=== PATIENT | male | born 1995 | race African-American/Black ===

== ENCOUNTER 2016-08-19 19:53 | Emergency (ER) ==
[2016-08-19 20:16] LABS: MANUAL DIFF NEEDED? NO
[2016-08-19 20:16] LABS: URINE CULTURE NEEDED? NO; URINE MICRO REVIEW NEEDED? NO; URINE SOURCE CLEAN CATCH
[2016-08-19 20:19] LABS: BILIRUBIN URINE NEGATIVE (NEGATIVE); BLOOD URINE NEGATIVE (NEGATIVE); COLOR YELLOW; GLUCOSE URINE NEGATIVE (NEGATIVE); LEUKOCYTES URINE NEGATIVE (NEGATIVE); NITRITE URINE NEGATIVE (NEGATIVE); PROTEIN URINE NEGATIVE (NEGATIVE); SP GRAVITY URINE 1.022; TURBIDITY URINE CLEAR (CLEAR); UR EPITHELIAL CELLS <10 /HPF (<10); URINE BACTERIA NEGATIVE /HPF; URINE RBC <10 /HPF (<10); URINE WBC <10 /HPF (<10); UROBILINOGEN URINE 3 mg/dL (NORMAL)
[2016-08-19 20:19] LABS: BASO% 0.4 % (0.0-0.8); EOS# 0.12 X1000 (0.0-0.7); EOS% 1.6 % (0.0-10.0); HEMATOCRIT 45.4 % (42.0-52.0); HEMOGLOBIN 15.4 g/dL (14.0-18.0); LYMPH# 1.61 X1000 (1.2-3.4); LYMPH% 21.3 % (20.5-51.1); MCH 29.7 PG (27-31); MCHC 33.9 g/dL (33-37); MCV 87.5 FL (81-99); MONO# 0.59 X1000 (0.11-0.59); MONO% 7.8 % (1.7-9.3); MPV 11.1 FL (7.4-10.4); NEUT% 68.9 % (42.2-75.2); PLT 244 X1000 (130-400); RBC 5.19 XMIL (4.7-6.1)
[2016-08-19 20:39] LABS: AGAP 14; ALBUMIN 4.5 g/dL (3.5-5.0); ALKALINE PHOSPHATASE 62 U/L (32-122); BUN 11 mg/dL (8-22); CALCIUM 9.3 mg/dL (8.8-10.2); CHLORIDE 101 mmol/L (98-107); COSMO 280; GOT 25 U/L (10-34); GPT 18 U/L (10-44); POTASSIUM 4.1 mmol/L (3.5-5.1); SODIUM 141 mmol/L (136-145); TCO2 26 mmol/L (25-35); TOTAL BILIRUBIN 0.58 mg/dL (0.20-1.00); TOTAL PROTEIN 7.2 g/dL (6.3-8.3)
[2016-08-19] MEDS ORDERED: NORCO-5 PO ONE (20:58)
[2016-08-19] MEDS ORDERED: FLEXERIL PO ONE (20:58)
--- NOTE | 2016-08-19 20:59 | PROVIDER DOCUMENTATION ---
HPI-Musculoskeletal Pain/Inj <SohailBrianapatricia John - Last Filed: 08/19/16 20:58> - GENERAL Source: patient - HX OF PRESENT ILLNESS-MUSKULOSKELTAL Quality of Pain: reports: aching Severity in ED: mild Onset/Duration: this afternoon Timing: still present Any recent injury?: No Locality of Occurance: Home Similar Symptoms Previously?: No Recently seen or treated by another doctor?: No - BACK & NECK PAIN/INJURY Back/Neck Pain Location: reports: paraspinous muscles Context / Method of Injury: reports: unknown Associated Symptoms: reports: denies symptoms History of Chronic Neck or Back Pain?: No <Parul Westbrook - Last Filed: 08/19/16 21:36> - GENERAL Chief Complaint: Flank Pain Stated Complaint: KIDNEY PAIN Time Seen by Provider: 08/19/16 20:52 - HX OF PRESENT ILLNESS-MUSKULOSKELTAL Nature of Presenting Problem: 20 year old M presents to the ED with a cc of lower back pain with an onset of this afternoon. Pt states that he has a hx of kidney stones but states that this does not feel like a kidney stone. (Parul Westbrook) Review of Systems - Adult - REVIEW OF SYSTEMS - ADULT Constitutional: denies: chills, fever Eyes: reports: no symptoms reported Ears, Nose, Mouth & Throat: reports: no symptoms reported Cardiovascular: reports: no symptoms reported Respiratory: reports: no symptoms reported Gastrointestinal: denies: abdominal pain, nausea, vomiting Genitourinary: denies: dysuria, hematuria Musculoskeletal: reports: back pain. denies: neck pain Integumentary: reports: no symptoms reported Neurological: reports: no symptoms reported Psychiatric: reports: no symptoms reported Endocrine: reports: no symptoms reported Hematologic/Lymphatic: reports: no symptoms reported Allergic/Immunologic: reports: no symptoms reported All Other Systems: Reviewed and Negative <Parul Westbrook - Last Filed: 08/19/16 21:36> Past History - Adult - PAST MEDICAL HISTORY-ADULT Major Childhood Illnesses: reports: denies history Cardiovascular: reports: denies history Respiratory: reports: denies history Gastrointestinal: reports: denies history Genitourinary: reports: denies history Musculoskeletal: reports: denies history Neurological: reports: denies history Psychiatric: reports: denies history Endocrine/Immune: reports: denies history Other Conditions: reports: denies history - PRIOR SURGERIES/PROCEDURES Surgical/Procedure History: reports: none - PRIOR HOSPITALIZATIONS Prior Hospitalizations: reports: none - IMMUNIZATION STATUS Childhood Immunizations: See Nurse Assessment Flu Vaccine: See Nurse Assessment - FAMILY HISTORY Family History: reviewed, not pertinent <Briana Sauceda - Last Filed: 08/19/16 20:58> - PAST MEDICAL HISTORY-ADULT Review of Records: reports: Nursing Assessment Review, Medications Reviewed Major Childhood Illnesses: reports: denies history Genitourinary: reports: kidney stones - PRIOR SURGERIES/PROCEDURES Surgical/Procedure History: reports: none - IMMUNIZATION STATUS Childhood Immunizations: See Nurse Assessment Flu Vaccine: See Nurse Assessment - SOCIAL HISTORY Smoking: non-smoker Substance Use: none/never Alcohol Use Frequency: never <Parul Westbrook - Last Filed: 08/19/16 21:36> Physical Exam-Injury Related - Physical Exam-Injury Related Initial Vital Signs Reviewed: Yes General Appearance: appears well, alert, no apparent distress Respiratory: chest non-tender, lungs clear, normal breath sounds Cardiovascular: normal peripheral pulses, regular rate, rhythm, no edema Back Exam: other (bilateral lumbar paraspinal muscle tenderness) Extremity: normal inspection Integumentary: normal color, warm/dry Psych/Mental Status: normal mood/affect, normal thought content, normal thought process, oriented x 3 <Parul Westbrook - Last Filed: 08/19/16 21:36> Progress <Briana Sauceda - Last Filed: 08/19/16 20:58> <Parul Westbrook - Last Filed: 08/19/16 21:36> - PLAN OF CARE/RESULTS Progress/Plan/Lab Results: plan of care: labs, medications Laboratory Tests 08/19/16 08/19/16 08/19/16 20:03 20:03 20:06 WBC 7.57 RBC 5.19 Hgb 15.4 Hct 45.4 MCV 87.5 MCH 29.7 MCHC 33.9 RDW Std Deviation 12.7 Plt Count 244 MPV 11.1 H Immature Gran % (Auto) 0.0 Neut % (Auto) 68.9 Lymph % (Auto) 21.3 [place] % (Auto) 7.8 Eos % (Auto) 1.6 Baso % (Auto) 0.4 Immature Gran # (Auto) 0.00 Neut # (Auto) 5.22 Lymph # (Auto) 1.61 [place] # (Auto) 0.59 Eos # (Auto) 0.12 Baso # (Auto) 0.03 Sodium 141 Potassium 4.1 Chloride 101 Carbon Dioxide 26 Anion Gap 14 BUN 11 Creatinine 0.9 Estimated GFR/1.73 m2 > 60 BUN/Creatinine Ratio 12 Glucose 93 Calculated Osmolality 280 Calcium 9.3 Total Bilirubin 0.58 AST 25 ALT 18 Alkaline Phosphatase 62 Total Protein 7.2 Albumin 4.5 Globulin 2.7 Albumin/Globulin Ratio 1.7 Urine Source CLEAN CATCH Urine Color YELLOW Urine Turbidity CLEAR Urine pH 7.0 Ur Specific [place] 1.022 Urine Protein NEGATIVE Ur Glucose (Stick) NEGATIVE Ur Ketones (Stick) 10 A Urine Blood NEGATIVE Urine Nitrite NEGATIVE Urine Bilirubin NEGATIVE Urobilinogen Dipstick 3 A Urine Leukocytes NEGATIVE Urine WBC (Auto) <10 Urine RBC (Auto) <10 U Epithel Cells (Auto) <10 Urine Bacteria (Auto) NEGATIVE Orders Category Date Time Status CBC WITH DIFF [HEME] Stat Lab 08/19/16 20:03 Completed COMPREHENSIVE METABOLIC PANEL [CHEM] Stat Lab 08/19/16 20:03 Completed URINALYSIS W/POSS RFLX CULT [URINALYSIS] Stat Lab 08/19/16 20:06 Completed Cyclobenzaprine [Flexeril] Med 08/19/16 20:58 Discontinued 10 mg PO NOW ONE Hydrocodone/APAP 5 mg/325 mg [[place]-5] Med 08/19/16 20:58 Discontinued 1 each PO NOW ONE Vital Signs - 24 hr 08/19/16 08/19/16 19:59 21:11 Temperature 97.6 F 97.6 F Pulse Rate 77 80 Respiratory 16 16 Rate Blood Pressure 152/90 126/81 O2 Sat by Pulse 98 100 Oximetry (Parul Westbrook) Departure - Departure Time of Disposition Order: 20:58 Certified Medical Emergency: Emergent <Briana Sauceda - Last Filed: 08/19/16 20:58> <Parul Westbrook - Last Filed: 08/19/16 21:36> - Departure DIAGNOSIS: Lumbar paraspinal muscle spasm Disposition: HOME 01 Condition: Stable Additional Instructions: Follow up with Dr. Dueñas, urologist ED Follow Up Instructions: You have been treated by a care provider in the Emergency Department. These instructions are being provided to you so you can have an understanding of how to care for yourself upon discharge. Upon discharge from the Emergency Department, you are responsible for making arrangements for follow-up care by a physician of your choice. Take all prescribed medications as directed. Return to the Emergency Department immediately for any new or worsening symptoms. You may call the Physician Referral phone number at [phone] to obtain a list of Physicians who are taking new patients. Prescriptions: Cyclobenzaprine [Flexeril] 10 mg PO TID #20 tablet Acetaminophen/Diphenhydramine [Percogesic 325-12.5 mg Tablet] 1 each PO Q6-8H PRN PRN #30 tablet PRN Reason: Pain Referrals: None,PCP [Primary Care Provider] - Ricardo Dueñas MD [STAFF PHYSICIAN] - Instructions: Back Pain, Adult, [id number] Attestation - Scribe Verification/Attestation Scribe:: Parul Westbrook Acting as Scribe for:: Briana Sauceda Scribe documention review:: This chart was documented by a scribe and accurately reflects the service the provider performed and the decisions made by the provider. <Parul Westbrook - Last Filed: 08/19/16 21:36> Physician Attestation
[2016-08-19 21:15] VITALS: BP 126/81
== END 2016-08-19 21:14 | disposition home or self-care (01) ==
LOC: ED 19:53
DX: M62.830 Muscle spasm of back (principal); M54.5 Low back pain; M79.1 Myalgia; Z87.442 Personal history of urinary calculi
CPT/HCPCS: 80053; 81001; 85025